=== PATIENT | male | born 1980 | race Caucasian/White ===

== ENCOUNTER 2017-02-17 08:50 | Emergency (ER) | payer BC ==
[~2017-02-17 08:50] MED LIST: ADULT LOW DOSE81 MG PO; COZAAR50 MG PO; CRESTOR20 MG PO; EFFIENT10 MG/TAB PO; METOPROLOL TART25 M1 PO; NITROGLYCERIN0.4 MG SL; NO MEDS; NORVASC5 MG PO
[2017-02-17] MEDS ORDERED: BACTRIM DS TAB1 EAC2 PO (09:40)
== END 2017-02-17 10:05 ==
LOC: EDMED 08:50
PROC: 0H9HXZZ Drainage of Right Upper Leg Skin, External Approach (ICD-10-PCS; principal; 2017-02-17)
DX: L02.415 Cutaneous abscess of right lower limb (principal); L03.115 Cellulitis of right lower limb; I10 Essential (primary) hypertension; Z90.89 Acquired absence of other organs; Z79.899 Other long term (current) drug therapy